=== PATIENT | male | born 1985 | race Caucasian/White ===

== ENCOUNTER 2021-06-26 17:51 | Emergency (ER) | payer OTHER ==
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
--- NOTE | 2021-06-26 19:27 | XR ---
EXAMINATION TYPE: XR clavicle RT DATE OF EXAM: 06/26/2021 COMPARISON: NONE HISTORY: Shoulder pain TECHNIQUE: 2 views FINDINGS: I see no fracture nor dislocation. Joint spaces appear normal. IMPRESSION: Negative right clavicle exam.
--- NOTE | 2021-06-26 19:28 | XR ---
EXAMINATION TYPE: XR shoulder complete RT DATE OF EXAM: 06/26/2021 COMPARISON: NONE HISTORY: Shoulder pain TECHNIQUE: 3 views FINDINGS: Glenohumeral joint is intact. I see no fracture nor dislocation. There are no pathologic ca lcifications. IMPRESSION: Negative right shoulder exam.
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
[2021-06-26] MEDS ORDERED: KETOROLAC 15 MG/ML 1 ML VIAL IVP STA (20:28)
[2021-06-26] MEDS ORDERED: MORPHINE SULFATE 2 MG/ML SYRINGE IVP STA (20:47)
[2021-06-26 21:13] VITALS: BP 140/82; PULSE 70; RESP 18; TEMP 98
== END 2021-06-26 21:13 | disposition home or self-care (01) ==
LOC: EC 17:51
DX: S20.211A Contusion of right front wall of thorax, initial encounter (principal); S49.91XA Unspecified injury of right shoulder and upper arm, initial encounter; V86.99XA Unspecified occupant of other special all-terrain or other off-road motor vehicle injured in nontraffic accident, initial encounter; Y92.410 Unspecified street and highway as the place of occurrence of the external cause
CPT/HCPCS: 73000; 73030; 71260; 74177; 99284; 96374; 96375; J2270; J1885; Q9967